=== PATIENT | female | born 1990 | race Native Hawaiian/Other Pacific Islander ===

== ENCOUNTER 2018-12-27 09:33 | Emergency (ER) | payer OTHER ==
[~2018-12-27] VITALS: Ht 165.1 cm; Wt 62.6 kg
[2018-12-27 09:52] VITALS: TEMP 97.9
[2018-12-27 10:41] LABS: PLATELET COUNT 227 K/uL (152-353)
[2018-12-27 10:49] LABS: POTASSIUM 4.3 mmol/L (3.6-5.2)
[2018-12-27 11:26] VITALS: BP 108/68
== END 2018-12-27 11:26 | disposition home or self-care (01) ==
LOC: ED 09:33
PROVIDERS: Family Medicine
DX: J01.90 Acute sinusitis, unspecified (principal); R05 Cough
CPT/HCPCS: 80053; 85027; 87502; 87651; 99283

== ENCOUNTER 2019-01-15 11:06 | Emergency (ER) | payer OTHER ==
[~2019-01-15] VITALS: Ht 165.1 cm; Wt 69.9 kg
[2019-01-15 11:08] VITALS: TEMP 98.6
[2019-01-15 11:39] LABS: PLATELET COUNT 251 K/uL (152-353)
[2019-01-15 11:42] LABS: POTASSIUM 3.8 mmol/L (3.6-5.2); SODIUM 140 mmol/L (136-145)
[2019-01-15 15:39] VITALS: BP 114/62
== END 2019-01-15 15:39 | disposition home or self-care (01) ==
LOC: ED 11:06
PROVIDERS: Emergency Medicine
DX: R07.89 Other chest pain (principal)
CPT/HCPCS: 80053; 81025; 82550; 82553; 84484; 85027; 85379; 93005; 99283

== ENCOUNTER 2019-02-16 14:29 | Emergency (ER) | payer OTHER ==
[~2019-02-16] VITALS: Ht 165.1 cm; Wt 69.9 kg
[2019-02-16 15:52] VITALS: BP 128/68; TEMP 98.3
== END 2019-02-16 15:58 | disposition home or self-care (01) ==
LOC: ED 14:29
DX: N92.0 Excessive and frequent menstruation with regular cycle (principal)
CPT/HCPCS: 81000; 81025; 99283

== ENCOUNTER 2019-03-12 18:39 | Emergency (ER) | payer OTHER ==
[~2019-03-12] VITALS: Ht 165.1 cm; Wt 71.2 kg
[2019-03-12 22:30] VITALS: BP 123/69; TEMP 97.5
== END 2019-03-12 22:30 | disposition home or self-care (01) ==
LOC: ED 18:39
DX: J06.9 Acute upper respiratory infection, unspecified (principal)
CPT/HCPCS: 87502; 87651; 96360; 96375; 99284; J2405

== ENCOUNTER 2019-06-01 18:48 | Emergency (ER) | payer OTHER ==
[~2019-06-01] VITALS: Ht 165.1 cm; Wt 71.2 kg
[2019-06-01 20:00] VITALS: BP 119/67; TEMP 98.5
== END 2019-06-01 20:00 | disposition home or self-care (01) ==
LOC: ED 18:48
DX: J02.0 Streptococcal pharyngitis (principal)
CPT/HCPCS: 87502; 87651; 96372; 99283; J0696

== ENCOUNTER 2019-11-24 13:40 | Emergency (ER) | payer OTHER ==
[~2019-11-24] VITALS: Ht 165.1 cm; Wt 72.6 kg
[2019-11-24 13:58] VITALS: TEMP 98.9
[2019-11-24 18:30] VITALS: BP 110/68
== END 2019-11-24 18:30 | disposition home or self-care (01) ==
LOC: ED 13:40
DX: K02.9 Dental caries, unspecified (principal); Z33.1 Pregnant state, incidental
CPT/HCPCS: 99283

== ENCOUNTER 2020-01-02 16:17 | Emergency (ER) | payer OTHER ==
[~2020-01-02] VITALS: Ht 165.1 cm; Wt 74.4 kg
[2020-01-02 17:52] LABS: PLATELET COUNT 217 K/uL (152-353)
[2020-01-02 17:58] LABS: POTASSIUM 4.2 mmol/L (3.6-5.2)
[2020-01-02 18:53] VITALS: BP 119/67; TEMP 98.7
== END 2020-01-02 18:54 | disposition home or self-care (01) ==
LOC: ED 16:17
PROVIDERS: Family Medicine
DX: O23.43 Unspecified infection of urinary tract in pregnancy, third trimester (principal); Z3A.32 32 weeks gestation of pregnancy; M54.89 Other dorsalgia
CPT/HCPCS: 36415; 80053; 81000; 85027; 87077; 87088; 99283; 99284

== ENCOUNTER 2020-02-06 09:20 | Outpatient (CLI) | payer OTHER ==
[2020-02-06 09:53] LABS: PLATELET COUNT 186 K/uL (152-353)
== END 2020-02-07 03:35 | disposition home or self-care (01) ==
LOC: LABW 09:20
PROVIDERS: Nurse Practitioner Family
DX: Z34.83 Encounter for supervision of other normal pregnancy, third trimester (principal); D50.8 Other iron deficiency anemias; D51.9 Vitamin B12 deficiency anemia, unspecified
CPT/HCPCS: 36415; 80053; 82607; 82746; 85027

== ENCOUNTER 2020-08-02 18:39 | Emergency (ER) | payer OTHER ==
[~2020-08-02] VITALS: Ht 165.1 cm; Wt 65.8 kg
[2020-08-02 20:15] VITALS: BP 140/83; TEMP 97.9
== END 2020-08-02 20:15 | disposition home or self-care (01) ==
LOC: ED 18:39
DX: N39.0 Urinary tract infection, site not specified (principal)
CPT/HCPCS: 81000; 87086; 87088; 99283

== ENCOUNTER 2021-02-16 16:08 | Emergency (ER) | payer OTHER ==
[~2021-02-16] VITALS: Ht 165.1 cm; Wt 65.8 kg
[2021-02-16 17:30] VITALS: BP 114/67; TEMP 97.7
== END 2021-02-16 17:30 | disposition home or self-care (01) ==
LOC: ED 16:08
DX: F41.8 Other specified anxiety disorders (principal)
CPT/HCPCS: 99281

== ENCOUNTER 2021-06-02 09:36 | Emergency (ER) | payer OTHER ==
[~2021-06-02] VITALS: Ht 165.1 cm; Wt 65.8 kg
[2021-06-02 09:40] VITALS: TEMP 98.4
[2021-06-02 12:09] VITALS: BP 118/57
== END 2021-06-02 12:10 | disposition home or self-care (01) ==
LOC: ED 09:36
DX: S60.221A Contusion of right hand, initial encounter (principal); W20.8XXA Other cause of strike by thrown, projected or falling object, initial encounter; Y93.C2 Activity, hand held interactive electronic device; Y92.89 Other specified places as the place of occurrence of the external cause
CPT/HCPCS: 99283

== ENCOUNTER 2022-04-26 10:18 | Emergency (ER) | payer OTHER ==
[~2022-04-26] VITALS: Ht 165.1 cm; Wt 63.5 kg
[2022-04-26 10:18] VITALS: TEMP 97.5
[2022-04-26 11:48] VITALS: BP 120/78
== END 2022-04-26 11:49 | disposition home or self-care (01) ==
LOC: ED 10:18
DX: R51.9 Headache, unspecified (principal); M54.2 Cervicalgia; M54.89 Other dorsalgia; S16.1XXA Strain of muscle, fascia and tendon at neck level, initial encounter; S29.012A Strain of muscle and tendon of back wall of thorax, initial encounter; V89.2XXA Person injured in unspecified motor-vehicle accident, traffic, initial encounter; Y92.89 Other specified places as the place of occurrence of the external cause
CPT/HCPCS: 99283